=== PATIENT | female | born 1970 | race Caucasian/White ===

== ENCOUNTER 2017-07-24 15:14 | Inpatient (IN) | payer OTHER ==
[~2017-07-24] VITALS: Ht 160 cm; Wt 57.4 kg
[2017-07-24] MEDS ORDERED: MORPHINE SULFATE 4 MG/ML SYR IV STA (15:16)
[2017-07-24] MEDS ORDERED: ONDANSETRON HCL INJ 2 MG/ML VIAL IV STA (15:16)
[2017-07-24] MEDS ORDERED: SODIUM CHLORIDE 0.9% 1000ML 1,000 ML IV STA (15:16)
[2017-07-24] MEDS ORDERED: DIATRIZOATE MEGL/DIATRIZOA SOD 30 ML BTL PO ONE (15:50)
[2017-07-24] MEDS ORDERED: MORPHINE SULFATE 2 MG/ML SYR ONE ×2 (16:18→17:17)
[2017-07-24 16:36] LABS: BASOPHILS % 0.3 % (0.0-1.0); EOSINOPHILS % 0.1 % (0.0-6.0); HEMATOCRIT 38.7 % (34.2-44.1); HEMOGLOBIN 13.4 g/dL (12.0-16.0); LYMPHOCYTES # (AUTO) 0.8 (1.0-3.2); LYMPHOCYTES % 6.2 % (18.0-39.1); MEAN CORPUSCULAR HEMOGLOBIN 33.8 pg (28-32); MEAN CORPUSCULAR HGB CONC 34.6 g/dL (31-35); MEAN CORPUSCULAR VOLUME 97.7 fL (81-99); MONOCYTES # (AUTO) 0.4 (0.2-0.8); MONOCYTES % 2.8 % (4.4-11.3); NEUTROPHILS # (AUTO) 12.1 (2.1-6.9); NEUTROPHILS % 90.2 % (38.7-80.0); PLATELET COUNT 222 x10e3/uL (140-360); RED BLOOD COUNT 3.96 x10e6/uL (3.6-5.1); RED CELL DISTRIBUTION WIDTH 12.5 % (11.7-14.4)
[2017-07-24 16:59] LABS: ALANINE AMINOTRANSFERASE 12 IU/L (0-55); ALBUMIN 4.4 g/dL (3.5-5.0); ALBUMIN/GLOBULIN RATIO 1.3 (0.8-2.0); ALKALINE PHOSPHATASE 36 IU/L (40-150); AMYLASE 108 U/L (25-125); ANION GAP 13.5 mmol/L (8-16); BLOOD UREA NITROGEN 15 mg/dL (7-26); BUN/CREATININE RATIO 22 (6-25); CARBON DIOXIDE 23 mmol/L (22-29); CHLORIDE 107 mmol/L (98-107); CREATINE KINASE 113 IU/L (29-168); CREATININE, SERUM 0.68 mg/dL (0.57-1.11); EST GLOMERULAR FILTRATION RATE > 60 ML/MIN (60-); GLUCOSE 129 mg/dL (74-118); LIPASE 24 U/L (8-78); POTASSIUM 3.5 mmol/L (3.5-5.1); SODIUM 140 mmol/L (136-145)
[2017-07-24] MEDS ORDERED: SODIUM CHLORIDE 0.9% 50ML 50 ML ONE (17:18)
[2017-07-24] MEDS ORDERED: IOPAMIDOL 370 MG/ML 200 ML INFUS..BTL INJ ONE (17:18)
[2017-07-24 17:34] LABS: BILIRUBIN,URINE NEGATIVE (NEGATIVE); KETONES,URINE 2+ (NEGATIVE); LEUKOCYTE ESTERASE ,URINE NEGATIVE (NEGATIVE); NITRITE,URINE NEGATIVE (NEGATIVE); PROTEIN,URINE DIPSTICK NEGATIVE (NEGATIVE); URINE UROBILINOGEN 0.2 mg/dL (0.2 - 1)
[2017-07-24 17:37] LABS: CLARITY,URINE HAZY (CLEAR); COLOR,URINE YELLOW (YELLOW)
[2017-07-24 17:38] LABS: PREGNANCY TEST, URINE NEGATIVE (NEGATIVE)
[2017-07-24 17:40] LABS: BACTERIA,URINE FEW /HPF; EPITHELIAL CELLS,URINE FEW /LPF; WBC,URINE (MAN) 0-5 /HPF (0-5)
[2017-07-24] MEDS ORDERED: MORPHINE SULFATE 2 MG/ML SYR IV ONE (18:00)
[2017-07-24] MEDS ORDERED: HYDROMORPHONE 2MG/ML INJ IV PRN (18:00)
[2017-07-24] MEDS ORDERED: HYDROMORPHONE 2MG/ML INJ IV STA (18:07)
[2017-07-24] MEDS ORDERED: PIPER-TAZ 3.375 GM 50 ML IV STA (18:07)
--- NOTE | 2017-07-24 18:09 | Diagnostic Imaging Report ---
EXAM: CT Abdomen and Pelvis WITH contrast INDICATION: Abdominal pain COMPARISON: None. TECHNIQUE: Abdomen and pelvis were scanned utilizing a multidetector helical scanner from the lung base to the pubic symphysis after administration of contrast. Coronal and sagittal reformations were obtained. Protocol: General survey IV CONTRAST: 100 mL of Isovue 370 ORAL CONTRAST: Gastroview COMPLICATIONS: None RADIATION DOSE: Total Exam DLP: 201.9 mGy*cm. CTDIvol has been reviewed. It is below the limits set by the Radiation Protocol Committee (RPC). FINDINGS: LINES: None. Lower thorax: No parenchymal abnormality. No pneumothorax. No pleural effusion. Bilateral breast implants. Liver: No focal mass. No hepatomegaly. Normal parenchyma. The hepatic and portal veins are patent. Gallbladder: No gallstones. No gallbladder distention. Biliary tree: No intrahepatic duct dilation. No extrahepatic duct dilation. Spleen: No splenomegaly. No focal mass. Pancreas: Normal parenchymal enhancement. No focal mass. Normal pancreatic duct. No peripancreatic inflammatory changes. Kidneys: No obstructing calculi. No hydronephrosis. No solid enhancing mass. No cysts. No perinephric soft tissue inflammatory changes. Adrenal glands: No adrenal nodules.. Bladder: Normal urinary bladder. Pelvic organs: Normal uterus and ovaries. Tampon is present in the vaginal vault. GI: No bowel wall thickening. No air-fluid levels. The stomach and small bowel are normal. The colon is normal. The appendix is edematous, measuring 1.5 cm in greatest transverse diameter, series 301 image 39 and series 2 image 58. Minimal adjacent soft tissue inflammatory changes. No drainable fluid collection. A moderate amount of retained feces limits intraluminal evaluation of the colon. Peritoneum/retroperitoneum: No pneumoperitoneum. No ascites. No drainable fluid collection. Lymph nodes: No lymphadenopathy. . Vessels: The abdominal aorta and iliac vessels are patent. The celiac, superior mesenteric, and inferior mesenteric arteries are patent. Single bilateral renal arteries are patent. . Bones: No focal abnormality. . Soft tissues: No focal abnormality. IMPRESSION: Acute appendicitis, without perforation or drainable fluid collection. The findings were discussed with Dr. Shell at 1755 hours on 07/24/2017. Signed by: Dr. Kendall Dumont M.D. on 07/24/2017 6:06 PM
[2017-07-24] MEDS ORDERED: HYDROMORPHONE 1MG/1ML INJ IV STA (18:11)
[2017-07-24] MEDS: SODIUM CHLORIDE 0.9% 1000ML 1,000 ML IV SCH ×2 (18:20→20:48)
--- OUTSIDE RECORDS SUMMARY | 2017-07-24 18:54 | XMS REPORT ---
Author Author [facility] [place] Address Unknown Phone Unavailable Care Team Providers Care Regrinder Operator Name Role Phone FREDDIE BLAIR Unavailable Unavailable Problems This patient has no known problems. Allergies, Adverse Reactions, Alerts This patient has no known allergies or adverse reactions. Medications This patient has no known medications. Results Test Description Test Time Test Comments Text Results Atomic Results Result Comments CT ABDOMEN/PELVIS W [place] [address] Patient Name: DAREN STILL MR #: [id number] : 1970 Age/Sex: 46/F Req #: [id number] Adm Physician: Ordered by: SAMSON COYLE BUMP GRADER OPERATOR Report #: [id number] Location: ER Room/Bed: Procedure: [id number] CT/CT ABDOMEN/PELVIS W Exam Date: 07/24/17 Exam Time: 1725 REPORT STATUS: Signed EXAM: CT Abdomen and Pelvis WITH contrast INDICATION: Abdominal pain COMPARISON: None. TECHNIQUE: Abdomen and pelvis were scanned utilizing a multidetector helical scanner from the lung base to the pubic symphysis after administration of contrast. Coronal and sagittal reformations were obtained. Protocol: General survey IV CONTRAST: 100 mL of Isovue 370 ORAL CONTRAST: Gastroview COMPLICATIONS: None RADIATION DOSE: Total Exam DLP: 201.9 mGy*cm. CTDIvol has been reviewed. It is below the limits set by the Radiation Protocol Committee (RPC). FINDINGS: LINES: None. Lower thorax: No parenchymal abnormality. No pneumothorax. No pleural effusion. Bilateral breast implants. Liver: No focal mass. No hepatomegaly. Normal parenchyma. The hepatic and portal veins are patent. Gallbladder: No gallstones. No gallbladder distention. Biliary tree : No intrahepatic duct dilation. No extrahepatic duct dilation. Spleen: No splenomegaly. No focal mass. Pancreas: Normal parenchymal enhancement. No focal mass. Normal pancreatic duct. No peripancreatic inflammatory changes. Kidneys: No obstructing calculi. No hydronephrosis. No solid enhancing mass. No cysts. No perinephric soft tissue inflammatory changes. Adrenal glands: No adrenal nodules.. Bladder: Normal urinary bladder. Pelvic organs: Normal uterus and ovaries. Tampon is present in the vaginal vault. GI: No bowel wall thickening. No air-fluid levels. The stomach and small bowel are normal. The colon is normal. The appendix is edematous, measuring 1.5 cm in greatest transverse diameter, series 301 image 39 and series 2 image 58. Minimal adjacent soft tissue inflammatory changes. No drainable fluid collection. A moderate amount of retained feces limits intraluminal evaluation of the colon. Peritoneum/retroperitoneum: No pneumoperitoneum. No ascites. No drainable fluid collection. Lymph nodes : No lymphadenopathy. . Vessels: The abdominal aorta and iliac vessels are patent. The celiac, superior mesenteric, and inferior mesenteric arteries are patent. Single bilateral renal arteries are patent. . Bones: No focal abnormality. . Soft tissues: No focal abnormality. IMPRESSION: Acute appendicitis, without perforation or drainable fluid collection. The findings were discussed with Dr. Blair at 1755 hours on 2017. Signed by: Dr. Chloe Coreas M.D. on 07/24/2017 6:06 PM Dictated By: CHLOE COREAS MD 05 COPY TO: SAMSON COYLE NP
[2017-07-24 20:25] VITALS: BP 111/63
[2017-07-24] MEDS: ONDANSETRON HCL INJ 2 MG/ML VIAL IV PRN ×2 (20:42→23:20)
[2017-07-24] MEDS: CEFOXITIN SOD 1 GM VIAL IV SCH (20:48)
[2017-07-24 20:52] VITALS: BP 111/63
[2017-07-24] MEDS ORDERED: CEFOXITIN 1GM/ DEXTROSE 50ML 50 ML IV SCH (22:00)
[2017-07-25] VITALS (8 sets, daily range): BP systolic 81–114; BP diastolic 42–55
[2017-07-25] MEDS ORDERED: PROMETHAZINE 25MG/ NS 50ML (IV) IV PRN (00:15)
[2017-07-25] MEDS: SODIUM CHLORIDE 0.9% 1000ML 1,000 ML IV SCH ×3 (01:59→09:59)
[2017-07-25] MEDS: CEFOXITIN SOD 1 GM VIAL IV SCH ×3 (06:31→21:14)
[2017-07-25] MEDS ORDERED: METFORMIN HCL500 MG PO (09:58)
[2017-07-25] MEDS ORDERED: BUPIVACAINE HCL 0.5% INJ 30 ML VIAL INJ ONE (10:22)
--- NOTE | 2017-07-25 11:17 | Consultation ---
DATE OF CONSULTATION: July 25, 2017 CHIEF COMPLAINT: Abdominal pain. HISTORY OF PRESENT ILLNESS: The patient is a 46-year-old female with 1-day history of pain in right lower quadrant with nausea and vomiting. She denies fever, chills, or diarrhea. Patient had no previous episode. PAST MEDICAL HISTORY: Negative for any chronic medical illness. PAST SURGICAL HISTORY: Positive for breast augmentation. ALLERGIES: SHE HAS NO DRUG ALLERGIES. SOCIAL HABITS: The patient does not smoke or drink. REVIEW OF SYSTEMS: No chest pain, shortness of breath, or cough. PHYSICAL EXAMINATION VITAL SIGNS: Stable. She is afebrile. GENERAL: Patient is awake and alert, in moderate discomfort. HEENT: Sclerae are nonicteric. NECK: Supple. LUNGS: Clear. HEART: Regular rate and rhythm. No murmur. ABDOMEN: Soft with tenderness in the right lower quadrant with rebound. LABORATORY DATA: White cell count is 13, hemoglobin of 13. Creatinine of 0.6. CT scan showed inflamed appendix. ASSESSMENT: Acute appendicitis. PLAN: Laparoscopic appendectomy. Attendant risk of bleeding, infection, and organ injury discussed. Job#: [id number] PKU
[2017-07-25] MEDS ORDERED: MEPERIDINE HCL INJ 50 MG/ML INJ ONE (11:32)
[2017-07-25] MEDS ORDERED: ACETAMINOPHEN 1000 MG/100 ML 100 ML IV ONE (11:32)
--- NOTE | 2017-07-25 14:40 | Operative Report ---
DATE OF PROCEDURE: July 25, 2017 PREOPERATIVE DIAGNOSIS: Appendicitis. POSTOPERATIVE DIAGNOSIS: Gangrenous appendicitis. OPERATIVE PROCEDURE: Laparoscopic appendectomy. ANESTHESIA: General endotracheal. INDICATION: The patient is a 46-year-old female with a 1-day history of pain in the right lower quadrant with nausea and vomiting. CT scan showed appendicitis. Patient consented for laparoscopic appendectomy with all attendant risks discussed. PROCEDURE FINDINGS: Acute gangrenous appendicitis. DESCRIPTION OF PROCEDURE: The patient brought to the OR intubated. Abdomen prepped with alcohol and draped in sterile fashion. Infraumbilical incision is made and a 12 mm port inserted, insufflation then begun. Under direct vision, other port sites placed in the right upper quadrant and suprapubic area. Appendix was noted to be grossly inflamed and gangrenous, but not perforated. It is noted to be attached to the right adnexal area with some bleeding noted from the right ovary. The appendix is mobilized from the right pelvic wall and the neck of the appendix is isolated with blunt and sharp dissection using LigaSure instrument and the neck is then transected at the base of the cecum with an Endo SURAJ stapler blue load. The mesentery to the appendix controlled with the LigaSure instrument and the appendix placed in Endopouch and retrieved out of the peritoneal cavity. Operative field was then irrigated. The right ovary is checked. Hemostasis achieved. All ports removed under direct vision. Fascia is closed with interrupted 0 Vicryl and skin closed with subcuticular stitch. Patient is extubated and transported to recovery room in guarded condition. Estimated blood loss 5 mL. Job#: [id number] VAS
[2017-07-25] MEDS: FAMOTIDINE 20 MG/2 ML VIAL IV SCH ×2 (16:03→21:14)
--- NOTE | 2017-07-25 17:22 | History and Physical ---
PRIMARY CARE PHYSICIAN: At the [facility]. She does not go to anyone in particular. CHIEF COMPLAINT: Abdominal pain. HISTORY OF PRESENT ILLNESS: Ms. Oden is a 46-year-old lady presenting with sharp, stabbing upper abdominal pain that has been going on times one day with nausea and vomiting. REVIEW OF SYSTEMS: She denies fever, chills or weight loss. She denies sinus congestion or sore throat. She denies chest pain or palpitations. She denies shortness of breath, wheezing or cough. She has abdominal pain as noted. She has nausea and vomiting associated with it. She denies diarrhea. She denies melena. She denies dysuria or flank pain. She denies rash or pruritus. Denies joint pain or swelling. She denies bleeding or bruising. She denies headache, vertigo or loss of consciousness. Denies depression, agitation, homicidal or suicidal ideation. PAST MEDICAL HISTORY: Unremarkable. The patient is on no chronic medication. She has no chronic medical illness. She has a history of breast augmentation as her only surgery. ALLERGIES: NO KNOWN DRUG ALLERGIES. FAMILY HISTORY: Likewise unremarkable. SOCIAL HISTORY: The patient is but is bilingual and Bulgarian, I think, is her primary language. She does not smoke, drink or use illegal drugs. She is generally independently functioning. PHYSICAL EXAM: PSYCHIATRIC: She is alert and oriented x3 with normal mood and affect. CONSTITUTIONAL: She has a normal body habitus. Is in no acute distress. VITAL SIGNS: Blood pressure 88/55. Pulse 53 and regular. Respiratory rate 16. O2 sat 100% percent. Temperature 97.3. HEENT: Her head is atraumatic. Her eyes are anicteric with clear conjunctivae. Ears and nares are without erythema or discharge. Oropharynx is clear. NECK: Supple with no mass or thyromegaly. LYMPHATIC SYSTEM: She has no palpable cervical, axillary or inguinal adenopathy. CARDIOVASCULAR: Her heart has a regular rate and rhythm without murmur or extra heart sounds. She has no carotid bruit. No peripheral edema. She has palpable dorsal pedal pulses. RESPIRATORY: Clear to auscultation and percussion with normal respiratory effort. GASTROINTESTINAL: Abdomen is soft. She has some mid epigastric tenderness and some tenderness in the right lower quadrant without rebound or guarding. She has a surgical dressing in place over the umbilicus and the right flank, status post laparoscopic appendectomy. She has normal bowel sounds present and no hepatosplenomegaly or masses palpable. CUTANEOUS: Her skin is warm and dry to touch with no rash or skin breakdown. MUSCULOSKELETAL: Her joints are in normal alignment without erythema or swelling. She has no calf tenderness. NEUROLOGIC: Exam is nonfocal with intact cranial nerves and no motor or sensory deficits. DIAGNOSTIC STUDIES: CT scan of the abdomen shows acute appendicitis without any drainable fluid collection. UA shows 11 to 20 white cells. Cultures pending. Troponin less than 0.001. Serum test negative. Chemistry shows potassium of 3.5. The rest of the electrolytes are normal. CO2 23. Creatinine 0.63. BUN 15 for a normal GFR. Calcium 9.0. Glucose 129. Transaminases, bilirubin and alkaline phos are normal. CBC shows a white count of 13.4 with 90.2% neutrophils. Hemoglobin 13.4, hematocrit 38.7 and platelet count 322,000. ASSESSMENT AND PLAN 1. Acute appendicitis status post laparoscopic appendectomy. Surgery was uneventful. The patient has a stable postoperative course. She feels much better after the surgery which is a good sign. Will continue cefoxitin and IV fluids. Will advance diet per surgery recommendations when they come, and patient can likely be discharged tomorrow. 2. Urinary tract infection. Patient is on IV cefoxitin already for the appendectomy. Will leave her on that pending urine culture reports. 3. For prophylaxis, the patient will be on Pepcid for GI prophylaxis and SCDs for DVT prophylaxis. Job#: [id number]
[2017-07-25] MEDS ORDERED: SEVOFLURANE INHAL SOLN 250 ML PEN BTL ONE (18:17)
[2017-07-25] MEDS ORDERED: GLYCOPYRROLATE INJ 1MG/ 5 ML SYR ONE (18:17)
[2017-07-25] MEDS ORDERED: METOCLOPRAMIDE HCL 10 MG/2ML VIAL ONE (18:17)
[2017-07-25] MEDS ORDERED: PROPOFOL IV EMULSION 10 MG/ML 20 ML VIAL ONE (18:17)
[2017-07-25] MEDS ORDERED: ONDANSETRON HCL INJ 2 MG/ML VIAL ONE (18:17)
[2017-07-25] MEDS ORDERED: DEXAMETHASONE SOD PHOS INJ 4 MG/ML VIAL ONE (18:17)
[2017-07-25] MEDS ORDERED: CEFOXITIN SOD 1 GM VIAL ONE (18:17)
[2017-07-25] MEDS ORDERED: ROCURONIUM BROMIDE 10 MG/ML 5ML VIAL ONE (18:17)
[2017-07-25] MEDS ORDERED: NEOSTIGMINE 5 MG/5ML SYR ONE (18:17)
[2017-07-25] MEDS ORDERED: LIDOCAINE HCL 2% LOCAL INJ 5 ML SDV VIAL INJ ONE (18:17)
[2017-07-25] MEDS ORDERED: KETAMINE HCL INJ 50 MG/ML 10 ML VIAL ONE (18:35)
[2017-07-25] MEDS ORDERED: FENTANYL CITRATE/PF 100MCG/2 ML INJ ONE (18:35)
[2017-07-25] MEDS ORDERED: MIDAZOLAM HCL 2 MG/2 ML VIAL ONE (18:35)
[2017-07-26] VITALS (7 sets, daily range): BP systolic 80–112; BP diastolic 44–60
[2017-07-26] MEDS: SODIUM CHLORIDE 0.9% 1000ML 1,000 ML IV SCH ×5 (01:59→20:06)
[2017-07-26] MEDS: CEFOXITIN SOD 1 GM VIAL IV SCH ×3 (05:52→21:26)
[2017-07-26] MEDS ORDERED: TRAMADOL HCL 50 MG TAB PO PRN (07:00)
[2017-07-26 07:10] LABS: BASOPHILS # (AUTO) 0.1 (0.0-0.1); BASOPHILS % 0.5 % (0.0-1.0); EOSINOPHILS % 0.3 % (0.0-6.0); HEMATOCRIT 31.4 % (34.2-44.1); HEMOGLOBIN 10.4 g/dL (12.0-16.0); LYMPHOCYTES # (AUTO) 1.9 (1.0-3.2); LYMPHOCYTES % 16.3 % (18.0-39.1); MEAN CORPUSCULAR HEMOGLOBIN 33.7 pg (28-32); MEAN CORPUSCULAR HGB CONC 33.1 g/dL (31-35); MEAN CORPUSCULAR VOLUME 101.6 fL (81-99); MONOCYTES # (AUTO) 0.8 (0.2-0.8); NEUTROPHILS % 75.5 % (38.7-80.0); PLATELET COUNT 165 x10e3/uL (140-360); RED BLOOD COUNT 3.09 x10e6/uL (3.6-5.1); RED CELL DISTRIBUTION WIDTH 13.2 % (11.7-14.4)
[2017-07-26 07:33] LABS: ANION GAP 9.1 mmol/L (8-16); BLOOD UREA NITROGEN 5 mg/dL (7-26); BUN/CREATININE RATIO 8 (6-25); CALCIUM 7.8 mg/dL (8.4-10.2); CARBON DIOXIDE 23 mmol/L (22-29); CHLORIDE 113 mmol/L (98-107); EST GLOMERULAR FILTRATION RATE > 60 ML/MIN (60-); GLUCOSE 95 mg/dL (74-118); POTASSIUM 3.1 mmol/L (3.5-5.1); SODIUM 142 mmol/L (136-145)
[2017-07-26] MEDS: FAMOTIDINE 20 MG/2 ML VIAL IV SCH ×2 (07:59→20:06)
[2017-07-26] MEDS ORDERED: SODIUM CHLORIDE 0.9% 500ML 500 ML IV SCH (10:45)
[2017-07-26] MEDS ORDERED: BISACODYL 10 MG SUPP PR ONE (11:00)
[2017-07-26] MEDS ORDERED: POTASSIUM CHLORIDE 20 MEQ TAB CR PO ONE (11:00)
[2017-07-27 01:03] VITALS: BP 103/53
--- NOTE | 2017-07-27 01:14 | Progress Note ---
DATE: STOREKEEPER STEWARD: Dr. Murali Montemayor CHIEF COMPLAINT: Appendicitis. SUBJECTIVE: Patient reports he feels weak and sleepy. Patient laying in bed. MEDICATIONS: Please see MAR. OBJECTIVE VITAL SIGNS: Temperature 98.8, pulse 50, blood pressure 89/54, respirations 16, satting 96%, weight 126. GENERAL: Patient is awake, alert. Reported feeling weak. LUNGS: Clear to auscultation bilaterally with normal respiratory effort. HEENT: Extraocular muscles are intact. ABDOMEN: Soft. Bowel sounds present. Slightly tender. CARDIOVASCULAR: Regular rate and rhythm. NEUROLOGICAL: Nonfocal. NECK: Supple. Trachea midline. No masses appreciated. EXTREMITIES: No calf tenderness. LABS: Sodium 142, potassium 3.1, chloride 113, CO2 23, BUN 5, creatinine 0.60, glucose 95, white count 11.8, hemoglobin 10.4, hematocrit 31.4, platelets 165,000. DIAGNOSES 1. Acute appendicitis, status post laparoscopic appendectomy: Will continue with intravenous antibiotics. Patient is deemed clear to be discharged. 2. Hypotensive: Will bolus patient 500 mL of normal saline. Will get a complete blood count, basic metabolic profile, iron and total iron-binding capacity in the morning. Will get stools for occult blood due to drop in hemoglobin. 3. Hypokalemia: Will replace the potassium with KCl 40 mEq p.o. times 1. 4. Constipation: Will give Dulcolax 10 g suppository times 1. Dictated by Jacinto Zee NP. Job#: [id number]
[2017-07-27] MEDS: SODIUM CHLORIDE 0.9% 1000ML 1,000 ML IV SCH (03:58)
[2017-07-27 05:18] VITALS: BP 97/55
[2017-07-27 07:28] LABS: BASOPHILS # (AUTO) 0.1 (0.0-0.1); BASOPHILS % 0.8 % (0.0-1.0); EOSINOPHILS # (AUTO) 0.1 (0.0-0.4); EOSINOPHILS % 1.7 % (0.0-6.0); HEMATOCRIT 31.1 % (34.2-44.1); HEMOGLOBIN 10.1 g/dL (12.0-16.0); LYMPHOCYTES # (AUTO) 2.1 (1.0-3.2); LYMPHOCYTES % 34.8 % (18.0-39.1); MEAN CORPUSCULAR HEMOGLOBIN 33.3 pg (28-32); MEAN CORPUSCULAR HGB CONC 32.5 g/dL (31-35); MEAN CORPUSCULAR VOLUME 102.6 fL (81-99); MONOCYTES # (AUTO) 0.5 (0.2-0.8); MONOCYTES % 7.9 % (4.4-11.3); NEUTROPHILS # (AUTO) 3.2 (2.1-6.9); NEUTROPHILS % 54.6 % (38.7-80.0); PLATELET COUNT 160 x10e3/uL (140-360); RED BLOOD COUNT 3.03 x10e6/uL (3.6-5.1); RED CELL DISTRIBUTION WIDTH 13.3 % (11.7-14.4)
[2017-07-27 07:43] LABS: ANION GAP 9.5 mmol/L (8-16); BLOOD UREA NITROGEN 6 mg/dL (7-26); BUN/CREATININE RATIO 11 (6-25); CALCIUM 7.7 mg/dL (8.4-10.2); CARBON DIOXIDE 23 mmol/L (22-29); CHLORIDE 114 mmol/L (98-107); CREATININE, SERUM 0.56 mg/dL (0.57-1.11); EST GLOMERULAR FILTRATION RATE > 60 ML/MIN (60-); GLUCOSE 86 mg/dL (74-118); POTASSIUM 3.5 mmol/L (3.5-5.1); SODIUM 143 mmol/L (136-145)
[2017-07-27 08:00] VITALS: BP 104/56
[2017-07-27 08:12] LABS: % IRON SATURATION 15 % (15-50); IRON 40 ug/dL (50-170); TOTAL IRON BINDING CAPACITY 262 ug/dL (261-478); TRANSFERRIN 187 mg/dL (180-382)
[2017-07-27] MEDS: FAMOTIDINE 20 MG/2 ML VIAL IV SCH (09:00)
[2017-07-27] MEDS ORDERED: ASCORBIC ACID 500 MG TAB PO SCH (11:15)
[2017-07-27] MEDS ORDERED: FERROUS SULFATE 325 MG TAB PO SCH (11:15)
[2017-07-27] MEDS ORDERED: FERROUS SULFAT325 MG PO (11:18)
[2017-07-27] MEDS ORDERED: PEPCID20 MG PO (11:18)
[2017-07-27] MEDS ORDERED: VITAMIN C500 M2 PO (11:18)
[2017-07-27] MEDS ORDERED: COLACE100 MG PO (11:26)
[2017-07-27] MEDS ORDERED: TUMS300 MG PO (11:27)
[2017-07-27 11:57] VITALS: BP 100/55
--- NOTE | 2017-07-27 12:36 | Discharge Summary ---
PRIMARY CARE PHYSICIAN: From [facility]. TELE TECH: Dr. Murali Montemayor, surgeon. HISTORY/HOSPITAL COURSE: This is a 46-year-old female that comes into the emergency room complaining of abdominal pain that was reported as sharp, stabbing to the upper abdomen, that had been going on for 1 day with nausea and vomiting. Patient denied any chills, fever. Patient had a CT scan of the abdomen which shows acute appendicitis without any drainable fluid collection. The UA showed 11-20 white cells. Culture was negative. Troponin 0.001. Serum test was negative according to H\T\P dictated by Dr. Araceli Olivera. Patient is being cleared for discharge by Dr. Montemayor. White count today is 5.92. This is significantly changed from yesterday. RBCs 3.03, hemoglobin 10.1, hematocrit 31.1. Sodium 143, potassium 3.5, chloride 114, CO2 23, BUN 6, creatinine 0.56, glucose 86, calcium 7.7. Iron 40, TIBC 262, iron saturation percentage 15, transferrin 187. Stool occult blood is negative. Patient has been hypotensive throughout the stay. Patient received 500 mL of IV bolus yesterday. Patient's blood pressure today is much better. PHYSICAL EXAMINATION VITAL SIGNS: Temperature 97.4, pulse 52, blood pressure 140/56, respirations 20, satting 98% on room air. GENERAL: Patient is awake, alert, oriented x3. Patient does appear to be upset with family member. Patient also reports that iron will make her constipated and she cannot eat any green leafy vegetables and was upset about that. LUNGS: Clear to auscultation bilaterally with normal respiratory effort. HEENT: Extraocular muscles are intact. ABDOMEN: Soft. Bowel sounds are present. Slightly tender. CARDIOVASCULAR: Regular rate and rhythm. NEUROLOGICAL: Nonfocal. EXTREMITIES: No calf tenderness. NECK: Supple. DISCHARGE DIAGNOSES 1. Acute appendicitis with status post laparoscopic appendectomy. 2. Urinary tract infection that has resolved. 3. Hypokalemia has resolved. 4. Hypotension that has resolved. 5. Anemia of iron deficiency that has been treated. Patient will be discharged on iron 325 p.o. b.i.d., vitamin C 500 mg p.o. b.i.d., TUMS 300 mg p.o. b.i.d. Patient was instructed to follow up with her PCP at [facility]. Dictated by: Jacinto Zee, ELECTRIC WELL LOGGING OPERATOR ARACELI OLIVERA MD Job#: [id number] EV
[2017-07-27] MEDS ORDERED: CALCIUM CARBONATE 500 MG CHEWABLE TABS PO SCH (17:00)
== END 2017-07-27 12:46 | disposition home or self-care (01) | DRG 342 ==
LOC: ER 15:14 → ERHOLD 18:52 → MED/SURG 20:02
PROVIDERS: ADMIT Internal Medicine; ATTEND Internal Medicine
PROC: 0DTJ4ZZ Resection of Appendix, Percutaneous Endoscopic Approach (ICD-10-PCS; principal; 2017-07-25 12:00)
DX: K35.80 Unspecified acute appendicitis (principal); N39.0 Urinary tract infection, site not specified; I95.9 Hypotension, unspecified; E87.6 Hypokalemia; D50.9 Iron deficiency anemia, unspecified; K59.00 Constipation, unspecified
CPT/HCPCS: 36415; 74177; 80048; 80053; 81001; 81025; 82150; 82270; 82550; 82553; 83540; 83690; 84466; 84484; 84702; 85025; 87086; 88304; 93005; 99284; J0694; J1100; J2001; J2175; J2250; J2270; J2405; J2543; J2550; J2765; J7030; Q9967